=== PATIENT | female | born 1970 | race Caucasian/White ===

== ENCOUNTER → 2018-03-30 | Outpatient (CLI) | payer BC ==
[~2018-03-30] MED LIST: ACET325; CEPH500 PO; CYCL10 PO; LOSA50 PO; NAPR250; NEOPOLHCSU AD; OMEP20ER PO; OXYACE5T PO; PROACE100 PO; Percocet 5-3251 EACH PO; RXPROACE PO; TRAM50 PO; Zofran Odt4 MG SL
[2018-03-30 14:32] LABS: Blood Urea Nitrogen 12 mg/dL (8-24); Creatinine, Blood 0.91 mg/dL (0.40-1.00); Glomerular Filtration Rate >60 (60-)
== END ==
LOC: LAB 10:43 → LAB SHORT 10:43
PROVIDERS: Hospitalist
DX: R10.9 Unspecified abdominal pain (principal)
CPT/HCPCS: 82565; 84520; 87086

== ENCOUNTER → 2019-07-29 | Outpatient (CLI) | payer BC ==
[~2019-07-29] MED LIST changes: +ESTR2 PO; +IBU800 M1 PO; +MEDR5 PO; +ONDA4ODT MM; +ZESTORETIC 20-121 EA PO
[2019-07-29 18:11] LABS: BASOPHILS ABSOLUTE AUTO 0.08 K/mm3 (0.00-0.23); BASOPHILS PERCENT AUTO 1 % (0-2); EOSINOPHILS ABSOLUTE AUTO 0.22 K/mm3 (0.00-0.68); EOSINOPHILS PERCENT AUTO 3 % (0-6); Hemoglobin 12.6 g/dL (11.5-16.0); IMMATURE GRAN ABSOLUTE AUTO 0.03 K/mm3 (0.00-0.10); IMMATURE GRAN PERCENT AUTO 0 % (0-1); LYMPHOCYTES ABSOLUTE AUTO 2.89 K/mm3 (0.84-5.20); LYMPHOCYTES PERCENT AUTO 36 % (21-46); MONOCYTES ABSOLUTE AUTO 0.52 K/mm3 (0.16-1.47); MONOCYTES PERCENT AUTO 6 % (4-13); Mean Corpuscular HGB Conc 33.2 g/dL (31.5-36.5); Mean Corpuscular Volume 93 fL (80-100); Mean Platelet Volume 8.7 fL (9.1-12.4); NEUTROPHILS ABSOLUTE AUTO 4.36 K/mm3 (1.96-9.15); NEUTROPHILS PERCENT AUTO 54 % (41-73); Platelet Count 397 K/mm3 (150-400); RDW Coefficient Variation 12.3 % (11.7-14.2); RDW Standard Deviation 42.7 fL (35.1-46.3); Red Blood Cell Count 4.07 M/mm3 (3.80-5.20)
== END | disposition home or self-care (01) ==
LOC: LAB SHORT 16:57 → LAB 16:57
PROVIDERS: Hospitalist
DX: F80.89 Other developmental disorders of speech and language (principal); R51 Headache
CPT/HCPCS: 85025; 85651

== ENCOUNTER → 2019-09-13 | Outpatient (CLI) | payer BC ==
[2019-09-13 15:17] LABS: BASOPHILS ABSOLUTE AUTO 0.07 K/mm3 (0.00-0.23); BASOPHILS PERCENT AUTO 1 % (0-2); EOSINOPHILS ABSOLUTE AUTO 0.12 K/mm3 (0.00-0.68); EOSINOPHILS PERCENT AUTO 2 % (0-6); Hematocrit 39.5 % (33.0-51.0); Hemoglobin 12.6 g/dL (11.5-16.0); IMMATURE GRAN ABSOLUTE AUTO 0.03 K/mm3 (0.00-0.10); IMMATURE GRAN PERCENT AUTO 0 % (0-1); LYMPHOCYTES ABSOLUTE AUTO 2.42 K/mm3 (0.84-5.20); LYMPHOCYTES PERCENT AUTO 30 % (21-46); MONOCYTES ABSOLUTE AUTO 0.73 K/mm3 (0.16-1.47); MONOCYTES PERCENT AUTO 9 % (4-13); Mean Corpuscular HGB 29.9 pg (26.0-34.0); Mean Corpuscular HGB Conc 31.9 g/dL (31.5-36.5); Mean Corpuscular Volume 94 fL (80-100); NEUTROPHILS ABSOLUTE AUTO 4.67 K/mm3 (1.96-9.15); NEUTROPHILS PERCENT AUTO 58 % (41-73); Platelet Count 413 K/mm3 (150-400); RDW Coefficient Variation 12.7 % (11.7-14.2); RDW Standard Deviation 43.8 fL (35.1-46.3); Red Blood Cell Count 4.22 M/mm3 (3.80-5.20); White Blood Cell Count 8.04 K/mm3 (4.00-11.30)
[2019-09-13 15:44] LABS: Anion Gap 6 mmol/L (6-16); Blood Urea Nitrogen 15 mg/dL (8-24); Bun/Creatinine Ratio 18.4 (12.0-20.0); CO2, Blood 26 mmol/L (21-32); Calcium, Blood 8.8 mg/dL (8.5-10.1); Chloride, Blood 105 mmol/L (98-108); Creatinine, Blood 0.81 mg/dL (0.40-1.00); Glomerular Filtration Rate >60 (60-); Glucose, Blood 78 mg/dL (70-99); Potassium, Blood 3.9 mmol/L (3.5-5.5); Sodium, Blood 137 mmol/L (136-145)
== END | disposition home or self-care (01) ==
LOC: LAB SHORT 09:40 → LAB 09:40
PROVIDERS: Obstetrics & Gynecology
DX: Z01.812 Encounter for preprocedural laboratory examination (principal)
CPT/HCPCS: 80048; 85025

== ENCOUNTER 2019-09-20 07:21 | Day surgery (SDC) | payer BC ==
[~2019-09-20] VITALS: Ht 167.6 cm; Wt 95.0 kg
[~2019-09-20 07:21] MED LIST changes: -IBU800 M1 PO; -ONDA4ODT MM
--- NOTE | 2019-09-20 08:14 | NUR ---
Ambulatory in Day Surgery History, Chart, Medications and Allergies reviewed before start of procedure. Lungs clear T/O to Auscultation. Patient confirms NPO status and agrees with scheduled surgery. Pre-Op teaching done. Pt verbalizes understanding.
--- NOTE | 2019-09-20 14:22 | NUR ---
POST OP: REPORT RECEIVED FROM CHETNA VELEZ RN AT ABOUT 1410. UPON ASSESSMENT PT REPORTS NAUSEA AND HAD SMALL AMOUNT EMESIS. AFTER THIS, REPORTED FEELING BETTER AND ABLE TO DRINK SOME SPRITE. PT REPORTS PAIN MAY BE THE CAUSE OF NAUSEA, PT MEDICATED FOR PAIN. SURGICAL SITES WNL. VSS. ABLE TO WEAN OFF O2. PT SLEEPING AT THIS TIME, WILL CTM.
--- NOTE | 2019-09-20 16:43 | NUR ---
SUMMARY: PT VSS, A/O. PT HAS BEEN SLEEPY POST OP. AWAKENS WITH PAIN, NAUSEA HAS SUBSIDED. PT TAKING IN SMALL AMOUNTS OF PO. REPORTS NAUSEA BETTER AND ABLE TO TAKE PAIN PILL. SURGICAL SITES WNL, MINIMAL VAGINAL BLEED. COSTELLO HAS GOOD OUTPUT. ENCOURAGING AMBULATION TONIGHT AND WILL MONITOR STATUS. NO SAFETY CONCERNS AT THIS TIME
[2019-09-21 04:05] LABS: BASOPHILS ABSOLUTE AUTO 0.01 K/mm3 (0.00-0.23); BASOPHILS PERCENT AUTO 0 % (0-2); EOSINOPHILS ABSOLUTE AUTO 0.01 K/mm3 (0.00-0.68); EOSINOPHILS PERCENT AUTO 0 % (0-6); Hematocrit 34.1 % (33.0-51.0); Hemoglobin 11.3 g/dL (11.5-16.0); IMMATURE GRAN ABSOLUTE AUTO 0.07 K/mm3 (0.00-0.10); IMMATURE GRAN PERCENT AUTO 1 % (0-1); LYMPHOCYTES ABSOLUTE AUTO 1.59 K/mm3 (0.84-5.20); LYMPHOCYTES PERCENT AUTO 13 % (21-46); MONOCYTES ABSOLUTE AUTO 0.72 K/mm3 (0.16-1.47); MONOCYTES PERCENT AUTO 6 % (4-13); Mean Corpuscular HGB 30.5 pg (26.0-34.0); Mean Corpuscular HGB Conc 33.1 g/dL (31.5-36.5); Mean Corpuscular Volume 92 fL (80-100); Mean Platelet Volume 8.6 fL (9.1-12.4); NEUTROPHILS ABSOLUTE AUTO 10.12 K/mm3 (1.96-9.15); NEUTROPHILS PERCENT AUTO 81 % (41-73); Platelet Count 370 K/mm3 (150-400); RDW Coefficient Variation 12.4 % (11.7-14.2); RDW Standard Deviation 41.8 fL (35.1-46.3); Red Blood Cell Count 3.71 M/mm3 (3.80-5.20); White Blood Cell Count 12.52 K/mm3 (4.00-11.30)
--- NOTE | 2019-09-21 05:09 | NUR ---
POD 1 S/P LAVH. PT VSS T/O NIGHT. PT CONT TO C/O MILD DIZZINESS WHEN UP. DRESSINGS CDI W/NO ACTIVE DRNG. PT HAVING SMALL AMT VAGINAL BLEEDING. PAIN MGD W/1 OXYCODONE AND TORADOL W/REP RELIEF. PT REP NAUSEA IMPROVED T/O NIGHT, KAE PO, NO EMESIS. PLAN TO D/C COSTELLO CATH THIS AM. PT USING CALL LIGHT FOR ASSISTANCE, WILL CONT TO MONITOR UNTIL REP GIVEN TO ONCOMING RN.
[2019-09-21] MEDS ORDERED: IBU800 M1 PO (08:36)
[2019-09-21] MEDS ORDERED: Percocet 5-3251 EACH PO (08:37)
[2019-09-21] MEDS ORDERED: ONDA4ODT MM (08:37)
--- NOTE | 2019-09-21 11:45 | NUR ---
DISCHARGE: PACKET PRINTED AND PT EDUCATED. SCRIPTS SENT WITH PT. IV DC'D BY ROSIE CHUCK BONER. PT VERBALIZED UNDERSTANDING OF TEACHING. LEFT UNIT VIA WHEELCHAIR WITH THIS RN
--- NOTE | 2019-09-21 13:24 | NUR ---
09/21/19 1324 Deja Wyman VERIFICATIONS: EDIT CHART.
== END 2019-09-21 11:39 | disposition home or self-care (01) ==
LOC: ORSCMMR 07:21 → ORD 09:00 → ORSCMMR 09:00 → SURS 12:39 → ORSCMMR 09-21 11:39
PROVIDERS: Obstetrics & Gynecology
PROC: 0UT2FZZ Resection of Bilateral Ovaries, Via Natural or Artificial Opening With Percutaneous Endoscopic Assistance (ICD-10-PCS; principal; 2019-09-20 09:00)
PROC: 0UT7FZZ Resection of Bilateral Fallopian Tubes, Via Natural or Artificial Opening With Percutaneous Endoscopic Assistance (ICD-10-PCS; principal; 2019-09-20 09:00)
PROC: 0UT9FZZ Resection of Uterus, Via Natural or Artificial Opening With Percutaneous Endoscopic Assistance (ICD-10-PCS; principal; 2019-09-20 09:00)
DX: N83.202 Unspecified ovarian cyst, left side (principal); R10.2 Pelvic and perineal pain; Z80.9 Family history of malignant neoplasm, unspecified; N70.11 Chronic salpingitis; N80.0 Endometriosis of uterus; I10 Essential (primary) hypertension; Z79.899 Other long term (current) drug therapy; E66.9 Obesity, unspecified; Z68.33 Body mass index [BMI] 33.0-33.9, adult
CPT/HCPCS: 36415; 85025; 88307; J0690; J1100; J1170; J1885; J2250; J2370; J2405; J2704; J2710; J2765; J3010; J7120

== ENCOUNTER 2019-11-25 13:33 | Emergency (ER) | payer BC ==
[~2019-11-25] VITALS: Ht 165.1 cm; Wt 95.2 kg
[~2019-11-25 13:33] MED LIST changes: +IBU800 M1 PO; +ONDA4ODT MM
[2019-11-25] MEDS ORDERED: Tylenol #3 El12.5 ML PO (16:22)
[2019-11-25] MEDS ORDERED: Prednisone20 MG PO (16:22)
== END 2019-11-25 16:30 | disposition home or self-care (01) ==
LOC: ER 13:33
DX: J04.0 Acute laryngitis (principal); J01.90 Acute sinusitis, unspecified; B97.89 Other viral agents as the cause of diseases classified elsewhere; I10 Essential (primary) hypertension; Z79.899 Other long term (current) drug therapy; Z87.891 Personal history of nicotine dependence
CPT/HCPCS: 99283

== ENCOUNTER → 2020-02-28 | Outpatient (CLI) | payer BC ==
[~2020-02-28] MED LIST changes: +Prednisone20 MG PO; +Tylenol #3 El12.5 ML PO
[2020-02-28 16:02] LABS: Free Thyroxine 1.03 ng/dL (0.70-1.60)
[2020-02-28 16:04] LABS: Thyroid Stimulating Hormone 1.61 uIU/mL (0.360-4.800)
[2020-03-01 12:08] LABS: LYME IGG/IGM AB <0.91 ISR (0.00-0.90)
== END | disposition home or self-care (01) ==
LOC: LAB 13:44 → LAB SHORT 13:44
PROVIDERS: Hospitalist
DX: L65.9 Nonscarring hair loss, unspecified (principal); M13.0 Polyarthritis, unspecified
CPT/HCPCS: 84439; 84443; 86618

== ENCOUNTER → 2020-12-11 | Outpatient (CLI) | payer BC | END | disposition home or self-care (01) | LOC: LAB 10:50 → LAB SHORT 10:50 | PROVIDERS: Hospitalist | DX: M25.50 Pain in unspecified joint (principal) | CPT/HCPCS: 85651; 86038; 86430 ==